=== PATIENT | male | born 1985 | race Caucasian/White ===

== ENCOUNTER 2020-04-07 18:59 | Emergency (ER) | payer BC ==
[~2020-04-07] VITALS: Ht 175.3 cm; Wt 122.5 kg
[~2020-04-07 18:59] MED LIST: ACIPHEX 20 MG T20 MG PO; BENAZEPRIL HCL10 MG; HYDROCODONE-AP1 EAC6 PO; XANAX 0.5 MG0.5 M1; ZOFRAN ODT4 MG PO; ZOLOFT 50 MG TA50 MG PO
[2020-04-07] MEDS ORDERED: OMEPRAZOLE40 MG PO (19:05)
[2020-04-07 19:39] LABS: ABSOLUTE EOSINOPHILS 0.2 thou/uL (0.0-0.7); ABSOLUTE LYMPHOCYTES 2.2 thou/uL (0.8-5.3); ABSOLUTE MONOCYTES 0.4 thou/uL (0.0-1.2); ABSOLUTE NEUTROPHILS 4.1 thou/uL (1.6-8.1); BASOPHILS 0.6 %; EOSINOPHILS 3.3 %; HEMATOCRIT 46.2 % (42.0-52.0); HEMOGLOBIN 16.7 gm/dL (14.0-18.0); LYMPHOCYTES 31.8 %; MCH 33.1 pg (26.0-34.0); MCHC 36.1 g/dL (28.0-37.0); MCV 91.6 fL (80.0-100.0); MONOCYTES 5.6 %; MPV 9.6 fl. (7.2-11.1); NUCLEATED RBCS 0 /100WBC; PLATELET COUNT* 168 thou/uL (150-400); POLYS 58.7 %; RBC 5.05 mil/uL (4.50-6.00); RDW-CV 12.7 % (10.5-14.5); WBC 7.1 thou/uL (4.0-11.0)
[2020-04-07 19:45] LABS: CALCIUM 8.6 mg/dL (8.5-10.1); CREATININE 0.9 mg/dL (0.6-1.3); POTASSIUM 4.2 mmol/L (3.5-5.1)
[2020-04-07 19:50] LABS: ALBUMIN 3.9 g/dL (3.4-5.0); TOTAL BILIRUBIN 0.4 mg/dL (<0.1-1.0); TOTAL PROTEIN 7.6 g/dL (6.4-8.2)
[2020-04-07] MEDS ORDERED: PEPCID20 MG PO (20:27)
[2020-04-07 20:44] VITALS: BP 144/86
--- NOTE | 2020-04-08 13:12 | EKG ---
[place] [address] ELECTROCARDIOGRAM REPORT Name: KAREN LEONFRED Magaña Room: [facility]#: [id number] Admission: 04/07/20 Attend Phys: Discharge: 04/07/20 Date of : 85 Date of Service: 04/07/20 190 Report #: [id number] THIS REPORT FOR: //name// [facility] ED Test Date: 2020-04-07 Test Time: 19:05:52 Pat Name: ALVARO LEON Department: Room: Gender: Rotoprinter: [place] : 1985 Requested By: Mreissa Fink Order Number: [id number] Alexis MD: Tanvir Hewitt Measurements Intervals [place] Rate: 76 P: 10 GA: 179 QRS: 13 QRSD: 90 T: 22 QT: 374 QTc: 421 Interpretive Statements Sinus rhythm Compared to ECG 05/24/2014 16:51:51 Sinus tachycardia no longer present Electronically Signed On 04-08-2020 13:12:25 CDT by Tanvir Hewitt [email or web address] <ELECTRONICALLY SIGNED> By: Tanvir Hewitt MD, [facility] 04/08/20 1312 1905 1905 Tanvir Hewitt MD, FAC /EPI
== END 2020-04-07 20:47 | disposition home or self-care (01) ==
LOC: M.ERS 18:59
PROVIDERS: Physician Assistant
DX: K21.9 Gastro-esophageal reflux disease without esophagitis (principal); I10 Essential (primary) hypertension; E11.9 Type 2 diabetes mellitus without complications